=== PATIENT | male | born 1955 | race Caucasian/White ===

== ENCOUNTER 2025-01-10 20:43 | Emergency (ER) | payer MEDICARE, OTHER, SELFPAY ==
[2025-01-10 20:53] VITALS: BP 140/69
[2025-01-10 20:58] VITALS: BMI 25.9
[2025-01-10 21:00] VITALS: BP 147/77
[2025-01-10 21:09] LABS: % Basophils 0.8 % (0-2); % Eosinophils 2.5 % (0-6); % Immature Granulocytes 0.2 % (0-0.5); % Neutrophils 53.5 % (42.2-75.2); Absolute Basophils 0.1 10^3/uL (0-0.2); Absolute Eosinophils 0.2 10^3/uL (0-0.7); Absolute Lymphocytes 2.1 10^3/uL (1.2-3.4); Absolute Monocytes 0.6 10^3/uL (0.1-0.6); Absolute Neutrophils 3.3 10^3/uL (1.4-6.5); Hemoglobin 14.4 g/dL (13.0-18.0); Mean Corp Hgb Conc. 35.1 g/dL (33.0-37.0); Mean Corpuscular Hgb 31.4 pg (27.0-31.0); Mean Corpuscular Volume 89.5 fL (80.0-94.0); Mean Platelet Volume 10.6 fL (7.4-10.4); Nucleated Red Blood Cells % 0 % (-); Platelet Count 183 10^3/uL (130-400); Red Blood Cell Count 4.58 10^6/uL (4.70-6.10); Red Cell Dist. Width 12.8 % (11.5-14.5); White Blood Cell Count 6.1 10^3/uL (4.8-10.8)
[2025-01-10 21:22] LABS: ALT (SGPT) 22 U/L (0-50); AST (SGOT) 24 U/L (17-59); Albumin 4.5 g/dl (3.5-5.0); Alkaline Phosphatase 58 U/L (38-126); Blood Urea Nitrogen 16 mg/dl (9-20); Calcium 9.3 mg/dl (8.4-10.2); Carbon Dioxide 26 mmol/L (22-30); Chloride 108 mmol/L (98-107); Estimated Creatinine Clearance 73 ml/min; Glucose 110 mg/dl (70-99); Potassium 3.6 mmol/L (3.5-5.1); Sodium 140 mmol/L (135-145); Total Bilirubin 0.6 mg/dl (0.2-1.3); Total Protein 6.7 g/dl (6.3-8.2); eGFR > 60.00
[2025-01-10 21:32] LABS: Troponin I < 0.012 ng/ml
[2025-01-10] MEDS: NSS 1000 IV (21:49)
[2025-01-10] MEDS: ZOFRAN 4 MG IV (21:50)
[2025-01-10] MEDS: ANTIVERT 25 MG PO (21:51)
--- NOTE | 2025-01-10 22:27 | ED.GENMED ---
History of Present Illness
General
Chief Complaint: Dizziness
Time Seen by Provider: 01/10/25 21:24
History of Present Illness
History of Present Illness:
69-year-old male with history of hypertension hyperlipidemia presenting for acute onset of dizziness. Patient was eating dinner prior to arrival, became very dizzy started vomiting. Notes multiple episodes of vomiting prior to arrival. Denies
ever having dizziness like this in the past. Denies associated chest pain or difficulty breathing. Denies focal weakness or sensory deficits. Denies numbness or tingling to his extremities. Denies any history of vertigo. Denies any recent fever
or illness. Denies any recent trauma or fall. Denies any visual changes. Denies any additional acute medical complaints
Phy Exam
Physical Exam
Physical Exam:
General: Well-appearing, no clinical signs of dehydration, nontoxic and in no acute distress
HEENT: protecting airway, pupils equal and reactive. Bilateral vertical bilateral horizontal nystagmus, right greater than left.
Neck: appears supple
CV: Normal heart rate, regular rhythm
Resp: No accessory muscle use, no increased work of breathing, lungs clear to auscultation bilaterally
Abd: Soft and non-distended, no tenderness to palpation
Extremities: No deformities, no swelling, no erythema, pulses and sensation intact
Neuro: alert, no focal neurologic deficit
: deferred
Rectal: deferred
Psych: Normal affect
Skin: Intact
Course
Orders/Labs/Results
Orders:
Orders
01/10/25 20:51
EKG [Electrocardiogram (*1)] Urgent
Reason for Study: Abdominal Pain
EKG- Treatment ONCE
01/10/25 20:59
Complete Blood Count/With Diff Urgent
Comprehensive Metabolic Panel Urgent
Troponin I Urgent
01/10/25 21:39
CT Head W/o Iv Contrast Urgent
Comment:
Reason For Exam: acute onset dizziness
0.9% Sodium Chloride 1000 ml [Nss] 1,000 ml IV BOLUS
Meclizine [Antivert] 25 mg PO NOW STA
Ondansetron Injectable [Zofran] 4 mg IV NOW STA
Abnormal Lab Results
01/10/25
20:59
RBC 4.58 L 10^6/uL
(4.70-6.10)
MCH 31.4 H pg
(27.0-31.0)
MPV 10.6 H fL
(7.4-10.4)
Chloride 108 H mmol/L
(98-107)
Glucose 110 H mg/dl
(70-99)
01/10/25 20:59
01/10/25 20:59
Vital Signs
Initial and Last Documented VS:
Initial Vital Signs
Pulse Resp Pulse Ox
74 30 97
01/10/25 20:49 01/10/25 20:49 01/10/25 20:49
Last Documented Vital Signs
Temp Pulse Resp BP Pulse Ox
98 F 69 14 118/57 97
01/10/25 20:58 01/10/25 23:00 01/10/25 23:00 01/10/25 23:00 01/10/25 23:00
MDM/Problems Addressed
MDM/Problems Addressed:
69-year-old male with history of hypertension and hyperlipidemia presenting for acute onset of nausea, vomiting, dizziness. Vital signs on arrival are significant for tachypnea, however patient acutely dizzy upon arrival.
On exam, patient resting comfortably, no acute distress. Patient in no respiratory distress. Patient is acutely dizzy with bilateral horizontal nystagmus, with suspicion for nystagmus, with suspicion for BPPV. EKG obtained, nonischemic, no
arrhythmia. Will plan for laboratory analysis to ensure no electrolyte derangement. Patient denying any chest pain, without present concern for ACS. No tenderness to the abdomen, without concern for acute intra-abdominal process or infection.
Suspect that the nausea and vomiting is secondary to patient's dizziness. Given acute onset of symptoms, will screen with CT brain imaging. Will treat with IV fluids, meclizine, Zofran and reassess
23:10 -patient's labs are unremarkable. CT brain unremarkable. Patient reports that he is feeling better, was able to ambulate steadily. Feel stable for discharge with outpatient supportive therapy. Will prescribe information for vestibular
therapy. Will prescribe meclizine. Return precautions discussed and patient verbalized understanding
*EKG
Interpreted by ED Provider?: Yes
EKG Intrepretation Date: 01/10/25
EKG Intrepretation Time: 22:46
Interpretation: normal
Comparison EKG: no comparison EKG present
Heart Rate: 72
Rate: normal
Rhythm: sinus
Romney: normal axis
Interval: normal interval
QRS Pattern: right bundle branch block (incomplete)
Ischemia: no ischemia
*Critical Care Note
Total Time (30-74mins, 75-104mins- exclusive of procedures): Not Applicable
ED Attending Note
-
Portions of this chart may have been created with voice recognition software.� Occasional wrong word or��sound alike� substitutions may have occurred due to the inherent limitations of voice recognition software.
Discharge Plan
Departure
Referrals:
PRIVATE,PHYSICIAN [Family Provider, Internal Medicine]
Interventions
Interventions:
DK-[id number]-[id number] Assessment Last Done: 01/10/25 21:12
ED- Cardiac Assessment Last Done: 01/10/25 21:12
ED- Neurological Assessment Last Done: 01/10/25 21:12
Discharge Date and Time
Print Language: DANISH
[2025-01-10 23:00] VITALS: BP 118/57
== END 2025-01-10 23:31 | disposition home or self-care (01) ==
LOC: EMR 20:43
PROVIDERS: EMERGENCY PHYSICIAN Student in an Organized Health Care Education/Training Program
DX: R42 Dizziness and giddiness (principal); I10 Essential (primary) hypertension; E78.5 Hyperlipidemia, unspecified
CPT/HCPCS: 99285; 96374; 96361; 70450; 80053; 84484; 85025; 93005